=== PATIENT | female | born 1990 | race Two or more races ===

== ENCOUNTER 2022-10-25 21:14 | Emergency (ER) | payer OTHER ==
[2022-10-25 21:41] VITALS: BP 118/83; PULSE 75; RESP 18; TEMP 97.8; BMI 21.4
== END 2022-10-26 00:38 | disposition home or self-care (01) ==
LOC: FER 21:14
DX: R00.2 Palpitations (principal); R42 Dizziness and giddiness; R20.2 Paresthesia of skin; F43.9 Reaction to severe stress, unspecified; R55 Syncope and collapse
CPT/HCPCS: 70450-TC; 93005; 99284-25